=== PATIENT | male | born 1980 | race Two or more races ===

== ENCOUNTER 2018-01-28 07:52 | Day surgery (SDC) | payer OTHER ==
[2018-01-28] VITALS (9 sets, daily range): BP systolic 117–142; BP diastolic 69–95
[~2018-01-28] VITALS: Ht 180.3 cm; Wt 84.3 kg
[~2018-01-28 07:52] MED LIST: ACET-2119 PO; CAPS42.57 TOP; ceFAZolin 2gm in dextrose, iso 100 ML IV ONE; cefazolin/dext.iso 2gm/50ml 50 ML IV ONE; famotidine 20mg tablet PO ONE; ringers solution, lacted 1,000 ML IV SCH
[2018-01-28] MEDS ORDERED: LIDOcaine 1% (10mg/ml) 2ml vial ONE (08:32)
[2018-01-28] MEDS ORDERED: ceFAZolin 1000mg inj ONE (11:45)
[2018-01-28] MEDS ORDERED: ROPIVAcaine 0.5% (5mg/ml) 30ml vial ONE (11:45)
[2018-01-28] MEDS ORDERED: sevoflurane 250ml liquid IH ONE (11:50)
[2018-01-28] MEDS ORDERED: MIDAZolam 5mg/5ml vial ONE (11:59)
[2018-01-28] MEDS ORDERED: fentaNYL /PF 50mcg/ml 5ml ampule ONE (12:01)
[2018-01-28] MEDS ORDERED: LIDOcaine 2% 5ml jelly ONE (12:01)
[2018-01-28] MEDS ORDERED: rocuronium 10mg/ml inj IV ONE (12:35)
[2018-01-28] MEDS ORDERED: propofol inj 20 ML IV ONE (12:35)
[2018-01-28] MEDS ORDERED: LIDOcaine 2% (20mg/ml) 5ml vial ONE (12:35)
[2018-01-28] MEDS ORDERED: cloNIDine hcl/PF 100mcg/ml inj ONE (13:16)
[2018-01-28] MEDS ORDERED: ondansetron/PF 4mg/2ml inj ONE (13:17)
[2018-01-28] MEDS ORDERED: dexamethasone sod phosphate 4mg/ml inj. ONE (13:17)
[2018-01-28] MEDS ORDERED: ringers solution, lacted 1,000 ML IV SCH (13:29)
[2018-01-28] MEDS ORDERED: proCHLORperazine 10 MG/2 ml inj IV PRN (13:30)
[2018-01-28] MEDS ORDERED: ondansetron/PF 4mg/2ml inj IV PRN (13:30)
[2018-01-28] MEDS ORDERED: morphine 4 MG/ML inj SYRINge IV PRN ×2 (13:30)
[2018-01-28] MEDS ORDERED: meperidine/PF 50mg/ml syringe IV PRN ×2 (13:30)
[2018-01-28] MEDS: meperidine/PF 50mg/ml syringe IV PRN ×2 (14:04→14:23)
== END 2018-01-28 15:25 ==
LOC: PAS 07:52 → EEVIPCON 10:45 → PAS 15:25
PROVIDERS: ATTEND Orthopaedic Surgery
DX: S83.511A Sprain of anterior cruciate ligament of right knee, initial encounter (principal); S83.241A Other tear of medial meniscus, current injury, right knee, initial encounter; S83.281A Other tear of lateral meniscus, current injury, right knee, initial encounter; B19.20 Unspecified viral hepatitis C without hepatic coma; G89.18 Other acute postprocedural pain; Z98.890 Other specified postprocedural states; Z79.82 Long term (current) use of aspirin; Z79.899 Other long term (current) drug therapy; X58.XXXA Exposure to other specified factors, initial encounter; Y93.89 Activity, other specified; Y92.89 Other specified places as the place of occurrence of the external cause; Y99.8 Other external cause status
CPT/HCPCS: 29881; 29888; 64447; A6449; C1713; C1750; C1762; J0690; J0735; J1100; J2001; J2175; J2250; J2405; J2704; J2795; J3010; J3490; J7030; J7120; A7000